=== PATIENT | female | born 1955 | race Caucasian/White ===

== ENCOUNTER 2016-11-07 15:00 | Emergency (ER) | payer BC, OTHER ==
[~2016-11-07] VITALS: Ht 160 cm; Wt 96.4 kg
[~2016-11-07 15:00] MED LIST: ACET-1256 PO; ASPEC81 PO; ATEN50TA8 PO; ATOR-22 PO; DXY100 PO; HYDR-3419 PO; HYDR25TA5 PO; LISI-461 PO; PLV75 PO; PRD20 PO
[2016-11-07 15:06] VITALS: TEMP 37; Ht 160 cm; Wt 96.4 kg
[2016-11-07] MEDS ORDERED: CHOL400T5 PO (15:32)
[2016-11-07] MEDS ORDERED: GLC/500 PO (15:32)
[2016-11-07 16:02] LABS: BASO % 0.6 %; BASO ABS # 0.04 K/uL (0-0.2); COMPLETE YES; EOS % 3.3 %; HEMATOCRIT 38.1 % (37-47); IG% 0.3 %; LYMPH % 39.5 %; LYMPH ABS # 2.53 K/uL (1.2-3.4); MEAN CELL VOLUME 91.8 fL (80-100); MEAN CORPUSCULAR HEMOGLOBIN 30.4 pg (25-34); MEAN CORPUSCULAR HGB CONC 33.1 g/dl (32-36); MEAN PLATELET VOLUME 10.1 fL (7.4-10.4); MONO % 4.8 %; NEUT % 51.5 %; PLATELET COUNT 223 K/uL (130-400); RED BLOOD COUNT 4.15 M/uL (4.2-5.4)
--- NOTE | 2016-11-07 16:15 | DIAGNOSTIC IMAGING REPORT ---
CHEST ONE VIEW PORTABLE CLINICAL HISTORY: 61 years-old Female presenting with dizziness, low blood pressure, Evaluate Fever/Sepsis. TECHNIQUE: Portable upright AP view of the chest was obtained. COMPARISON: 06/26/2015. FINDINGS: Cardiomediastinal silhouette normal. Interval decreased prominence of central pulmonary vasculature with resolution of bronchial wall thickening. Lungs and pleural spaces clear. Osseous structures and upper abdomen normal. IMPRESSION: 1. No acute cardiopulmonary disease. Electronically signed by: Vinod Tompkins M.D. 11/07/2016 4:14 PM Dictated Date/Time: 11/07/2016 4:12 PM
[2016-11-07 16:19] LABS: BLOOD UREA NITROGEN 19 mg/dl (7-18); BUN/CREATININE RATIO 20.8 (10-20); CALCIUM 9.8 mg/dl (8.5-10.1); CARBON DIOXIDE 29 mmol/L (21-32); CHLORIDE 107 mmol/L (98-107); CREATININE 0.89 mg/dl (0.60-1.20); GLUCOSE 80 mg/dl (70-99); POTASSIUM 3.4 mmol/L (3.5-5.1); SODIUM 141 mmol/L (136-145)
[2016-11-07] MEDS ORDERED: SODIUM CHLORIDE 0.9% 1000ML 1,000 ML IV STA (16:25)
[2016-11-07] MEDS ORDERED: SODIUM CHLORIDE 0.9% 500ML 500 ML IV STA (16:26)
[2016-11-07 16:29] LABS: CKMB/CK RATIO 1.6 (0-3.0)
--- NOTE | 2016-11-07 16:33 | EMERGENCY ROOM VISIT NOTE ---
History Report prepared by Agata: Sanya Deutsch Under the Supervision of: Dr. Óscar Acosta D.O. First contact with patient: 15:12 Chief Complaint: DIZZY Stated Complaint: DIZZY, LOW BP History of Present Illness The patient is a 61 year old female who presents to the Emergency Room with complaints of persistent dizziness that started last week. She says that she was here last June for what was thought to be an asthma attack. She had a lot of fluid in her lungs, and was put on BIPAP. The patient notes that she was going to receive Lasix, but her blood pressure was too low. Later that day, she received the Lasix when her blood pressure was back to normal. However, 20 minutes after receiving the Lasix, she says that she had a stroke. Last week, the patient states that she was getting her prescription filled for Atenolol, but she was given generic 40 mg Lasix by accident. The patient took 4 doses of the Lasix unknowingly before realizing she had the wrong medication because she started noticing the dizziness. The patient adds that she has had ringing in her ears and has been "seeing stars" persistently as well. She says that 5 days ago, her blood pressure was low at 62/40, so she stopped all her blood pressure medications. The patient states that her blood pressure finally got normal enough, so she went to the pharmacy and had her medicine switched back. She says that she took her morning blood pressure pills 3 days ago, but her blood pressure went down again, so ever since that day she has not been taking her blood pressure medications. The patient does take Hydrochlorothiazide and Lisinopril. She says that her blood pressure this morning was 112/low 60s. She denies any chronic leg swelling. Source of History: patient, family Onset: Last week Position: other (global - dizziness) Quality: other (after mistakenly taking Lasix) Timing: other (persistent) Note: Associated symptoms: Ringing in ears, "seeing stars". Low blood pressure. Review of Systems See HPI for pertinent positives & negatives. A total of 10 systems reviewed and were otherwise negative. Past Medical & Surgical Medical Problems: (1) Allergic rhinitis (2) Asthma (3) Dyslipidemia (4) HTN (hypertension) Family History Unobtainable family history due to adoption Social History Smoking Status: Never Smoker Alcohol Use: none Drug Use: none Housing Status: lives with family Occupation Status: disabled Current/Historical Medications Scheduled Aspirin (Aspirin EC Low Dose), 81 MG PO QAM Atenolol (Tenormin), 50 MG PO DAILY Atorvastatin (Lipitor), 20 MG PO DAILY Cholecalciferol (Vitamin D), 400 MG PO DAILY Hydrochlorothiazide (Hydrochlorothiazide), 25 MG PO DAILY Lisinopril (Lisinopril), 10 MG PO BIDM Metformin Hcl (Glucophage), 500 MG PO BID Allergies Coded Allergies: Sulfa Antibiotics (Verified Allergy, Unknown, GYNECOLOGICAL ISSUES, 11/07/16 ) [place] (Verified Allergy, Unknown, ANAPHYLAXIS, 11/07/16) Uncoded Allergies: SEASONAL (Allergy, Intermediate, WHEEZING, ITCHY EYES, 11/07/16) Physical Exam Vital Signs Date Time Temp Pulse Resp B/P (MAP) Pulse Ox O2 Delivery O2 Flow Rate FiO2 11/07/16 16:07 87 14 159/92 94 Room Air 11/07/16 15:42 126 11/07/16 15:06 37.0 139 16 204/99 93 Room Air Physical Exam CONSTITUTIONAL/VITAL SIGNS: Reviewed / noted above. GENERAL: Non-toxic in appearance. INTEGUMENTARY: Warm, dry, and [place]. HEAD: Normocephalic. EYES: without scleral icterus or trauma. ENT/OROPHARYNX: clear and moist. LYMPHADENOPATHY/NECK: Is supple without lymphadenopathy or meningismus. RESPIRATORY: Lungs clear and equal. CARDIOVASCULAR: Regular rate and rhythm. GI/ABDOMEN: Soft and nontender. No organomegaly or pulsatile mass. No rebound or guarding. Normal bowel sounds. EXTREMITIES: Warm and well perfused. BACK: No CVA tenderness. NEUROLOGICAL: Intact without focal deficits. PSYCHIATRIC: normal affect. MUSCULOSKELETAL: Normally developed with good muscle tone. Medical Decision & Procedures ER Provider Diagnostic Interpretation: X ray results and stated below per my interpretation and radiology interpretation. CHEST ONE VIEW PORTABLE CLINICAL HISTORY: 61 years-old Female presenting with dizziness, low blood pressure, Evaluate Fever/Sepsis. TECHNIQUE: Portable upright AP view of the chest was obtained. COMPARISON: 06/26/2015. FINDINGS: Cardiomediastinal silhouette normal. Interval decreased prominence of central pulmonary vasculature with resolution of bronchial wall thickening. Lungs and pleural spaces clear. Osseous structures and upper abdomen normal. IMPRESSION: 1. No acute cardiopulmonary disease. Electronically signed by: Vinod Tompkins M.D. 11/07/2016 4:14 PM Dictated Date/Time: 11/07/2016 4:12 PM Laboratory Results 11/07/16 15:44 Red Blood Count 4.15, Mean Corpuscular Volume 91.8, Mean Corpuscular Hemoglobin 30.4, Mean Corpuscular Hemoglobin Concent 33.1, Mean Platelet Volume 10.1, Neutrophils (%) (Auto) 51.5, Lymphocytes (%) (Auto) 39.5, Monocytes (%) (Auto) 4.8, Eosinophils (%) (Auto) 3.3, Basophils (%) (Auto) 0.6, Neutrophils # (Auto) 3.29, Lymphocytes # (Auto) 2.53, Monocytes # (Auto) 0.31, Eosinophils # (Auto) 0.21, Basophils # (Auto) 0.04 11/07/16 15:44 Test 11/07/16 15:44 11/07/16 16:17 White Blood Count 6.40 K/uL (4.8-10.8) Red Blood Count 4.15 M/uL (4.2-5.4) Hemoglobin 12.6 g/dL (12.0-16.0) Hematocrit 38.1 % (37-47) Mean Corpuscular Volume 91.8 fL (80-100) Mean Corpuscular Hemoglobin 30.4 pg (25-34) Mean Corpuscular Hemoglobin Concent 33.1 g/dl (32-36) Platelet Count 223 K/uL (130-400) Mean Platelet Volume 10.1 fL (7.4-10.4) Neutrophils (%) (Auto) 51.5 % Lymphocytes (%) (Auto) 39.5 % Monocytes (%) (Auto) 4.8 % Eosinophils (%) (Auto) 3.3 % Basophils (%) (Auto) 0.6 % Neutrophils # (Auto) 3.29 K/uL (1.4-6.5) Lymphocytes # (Auto) 2.53 K/uL (1.2-3.4) Monocytes # (Auto) 0.31 K/uL (0.11-0.59) Eosinophils # (Auto) 0.21 K/uL (0-0.5) Basophils # (Auto) 0.04 K/uL (0-0.2) RDW Standard Deviation 43.8 fL (36.4-46.3) RDW Coefficient of Variation 13.1 % (11.5-14.5) Immature Granulocyte % (Auto) 0.3 % Immature Granulocyte # (Auto) 0.02 K/uL (0.00-0.02) Anion Gap 5.0 mmol/L (3-11) Est Creatinine Clear Calc Drug Dose 73.3 ml/min Estimated GFR () 81.1 Estimated GFR (Non- 70.0 BUN/Creatinine Ratio 20.8 (10-20) Calcium Level 9.8 mg/dl (8.5-10.1) Total Creatine Kinase 127 U/L (26-192) Creatine Kinase MB 2.0 ng/ml (0.5-3.6) Creatine Kinase MB Ratio 1.6 (0-3.0) Troponin I < 0.015 ng/ml (0-0.045) Thyroid Stimulating Hormone (TSH) 1.630 uIu/ml (0.300-4.500) Urine Color YELLOW Urine Appearance SL CLOUDY (CLEAR) Urine pH 6.0 (4.5-7.5) Urine Specific [place] <= 1.005 (1.000-1.030) Urine Protein TRACE (NEG) Urine Glucose (UA) NEG (NEG) Urine Ketones NEG (NEG) Urine Occult Blood 1+ (NEG) Urine Nitrite NEG (NEG) Urine Bilirubin NEG (NEG) Urine Urobilinogen NEG (NEG) Urine Leukocyte Esterase SMALL (NEG) Urine RBC 0-4 /hpf (0-4) Urine WBC 1-5 /hpf (0-5) Urine Epithelial Cells 20-30 /lpf (0-5) Urine Bacteria NEG (NEG) Laboratory results as stated above per my review. Medications Administered Medications (Trade) Dose Ordered Sig/Kal Route Start Time Stop Time Status Last Admin Dose Admin Sodium Chloride 500 ml @ 999 mls/hr Q31M STAT IV 11/07/16 16:26 11/07/16 16:56 11/07/16 16:30 999 MLS/HR ECG Indication: other (dizziness) Rate (beats per minute): 122 Rhythm: sinus tachycardia Findings: no ectopy, other (no acute injury) ED Course 1515: Previous medical records were reviewed. The patient was evaluated in room A10. A complete history and physical examination was performed. 1625: Ordered NSS 500 ml @ 999 mls/hr IV. 1626: Ordered NSS 1000 ml @ 999 mls/hr IV. 1637: On reevaluation, the patient is resting comfortably. I discussed the results and findings with the patient. She verbalized agreement of the treatment plan. She was discharged home. Medical Decision Differential diagnosis: Etiologies such as benign positional vertigo, dehydration, hypovolemia, anemia, tumor, infection, hypoglycemia, electrolyte abnormalities, cardiac sources, intracerebral event, toxicologic, neurologic, as well as others were entertained. This is a 61-year-old female who presents to the ED with a chief complaint of dizziness, ringing in her ears and seeing stars. The patient states that she had a mixup of her medication last week. She was supposed to be taking atenolol but instead was given Lasix by her pharmacy. The patient states that she was monitoring her blood pressure at home and her blood pressure was low, therefore she was stopping her medication. The patient states that she recognized that the medication she was taking was Lasix and not atenolol. She does not normally take atenolol. The pharmacy gave her her current medication, per the patient and she took a dose and then again Sunday. She has not taken any of her blood pressure medications since Sunday. On her presentation today, the patient's blood pressure is 204/99. Her heart rate was 139. The patient's evaluation was unremarkable. Her exam is normal. Lungs were clear. Heart rate was tachycardic. EKG shows a sinus tachycardia at a rate of 122. CBC is normal. Chemistry panel was normal. Troponin is negative. TSH was normal. The patient was treated with 2 of her 3 blood pressure medications. She was given her atenolol 50 mg by mouth and her hydrochlorothiazide by mouth. The patient's blood pressure did improve and her tachycardia improved. She was given some IV fluids. The patient was told the results of the tests. She is due to take her lisinopril tonight. She was advised to take her lisinopril tonight and then as scheduled. She is also to resume her scheduled medications daily. She will follow-up with her doctor for recheck of her blood pressure sometime later this week. She is felt to be stable for discharge. Medication Reconcilliation Current Medication List: was personally reviewed by me Blood Pressure Screening Patient's blood pressure: Elevated blood pressure Impression Primary Impression: HTN (hypertension) Additional Impression: Not taking medication as directed Scribe Attestation The scribe's documentation has been prepared under my direction and personally reviewed by me in its entirety. I confirm that the note above accurately reflects all work, treatment, procedures, and medical decision making performed by me. Departure Information Dispostion Home / Self-Care Referrals Geovanni Osborne M.D. (PCP) Patient Instructions My [facility] Additional Instructions Follow-up with your doctor for further care and evaluation in 1-2 days. Return to the emergency department for worsening or new symptoms or any concerns. You have been examined and treated today on an emergency basis only. This is not a substitute for, or an effort to provide, complete comprehensive medical care. It is impossible to recognize and treat all injuries or illnesses in a single emergency department visit. It is therefore important that you follow up closely with your doctor. Call as soon as possible for an appointment. Take all of her medication as prescribed. Have your doctor recheck your blood pressure later this week. Problem Qualifiers Primary Impression: HTN (hypertension) Hypertension type: unspecified Qualified Codes: I10 - Essential (primary) hypertension
[2016-11-07 16:42] LABS: MANUAL MICROSCOPIC REQUIRED? YES; URINE APPEARANCE SL CLOUDY (CLEAR); URINE BILIRUBIN NEG (NEG); URINE COLOR YELLOW; URINE NITRITE NEG (NEG); URINE SPECIFIC GRAVITY <= 1.005 (1.000-1.030); UROBILINOGEN NEG (NEG)
[2016-11-07 16:45] LABS: REVIEW REQ? NO
[2016-11-07 16:47] LABS: URINE BACTERIA NEG (NEG); URINE RBC 0-4 /hpf (0-4)
[2016-11-07 17:13] VITALS: BP 143/86; PULSE 84; O2SAT 97
== END 2016-11-07 17:15 | disposition home or self-care (01) ==
LOC: C.EDB 15:01 → C.EDA 17:15
DX: I10 Essential (primary) hypertension (principal); Z91.14 Patient's other noncompliance with medication regimen; J45.909 Unspecified asthma, uncomplicated; E78.5 Hyperlipidemia, unspecified; Z79.82 Long term (current) use of aspirin; Z79.899 Other long term (current) drug therapy